=== PATIENT | male | born 1970 | race Asian ===

== ENCOUNTER 2017-08-22 14:36 | Emergency (ER) | payer OTHER ==
[~2017-08-22] VITALS: Ht 172.7 cm; Wt 86.2 kg
[2017-08-22 14:46] VITALS: BP 142/91
== END 2017-08-22 15:42 | disposition home or self-care (01) ==
LOC: ER 14:38
DX: F19.10 Other psychoactive substance abuse, uncomplicated (principal)
CPT/HCPCS: 71045-TC; A4606; Z7610